=== PATIENT | female | born 1950 | race Caucasian/White ===

== ENCOUNTER 2024-12-14 05:52 | Inpatient (IN) | payer MEDICARE, BC ==
[~2024-12-14] VITALS: Ht 165.1 cm; Wt 73.0 kg
[2024-12-14] MEDS ORDERED: OXYMETAZOLINE HCL NASAL SPRAY 30 ML BOTTLE NS ONE (06:50)
[2024-12-14] MEDS ORDERED: ANESTHESIA TRAY IN PYXIS 1 EA TRAY MC ONE (06:50)
[2024-12-14] MEDS ORDERED: LIDOCAINE 2%-EPI 1:100,000 30 ML VIAL ONE (06:50)
[2024-12-14] MEDS ORDERED: VANCOMYCIN 1 GM VIAL ONE (06:50)
[2024-12-14] MEDS ORDERED: dexaMETHasone SOD PHOSPHATE 2 ML ONE (06:50)
[2024-12-14] MEDS ORDERED: ROCURONIUM BROMIDE 50 MG/5 ML ONE (07:42)
[2024-12-14] MEDS ORDERED: FENTANYL PF 100MCG/2ML AMPUL ONE ×2 (07:50)
[2024-12-14] MEDS ORDERED: MIDAZOLAM HCL 2 MG/2ML VIAL ONE (07:50)
[2024-12-14 11:00] VITALS: BP 83/50; TEMP 97.9; O2SAT 98
[2024-12-14] MEDS ORDERED: MAGNESIUM HYDROXIDE 30 ML UDC PO PRN (13:00)
[2024-12-14] MEDS ORDERED: MAG HYDROX/AL HYDROX/SIMETH 30 ML UDC PO PRN (13:00)
[2024-12-14] MEDS ORDERED: ACETAMINOPHEN 325 MG TABLET PO PRN (13:00)
[2024-12-14] MEDS ORDERED: Z GUARD REMEDY 4 OZ OINT TP PRN (13:00)
[2024-12-14] MEDS ORDERED: OXYMETAZOLINE HCL NASAL SPRAY 30 ML BOTTLE NS PRN (13:00)
[2024-12-14] MEDS ORDERED: HYDROMORPHONE 1 MG/1 ML DISP.SYRIN IV PRN (13:00)
[2024-12-14] MEDS ORDERED: ONDANSETRON HCL/PF 4 MG/2 ML VIAL IVP PRN ×2 (13:00)
[2024-12-14] MEDS ORDERED: VENL37.591 PO (14:13)
[2024-12-14] MEDS: IV NS 0.9% 1,000 ML IV PRN (14:14)
[2024-12-14 16:00] VITALS: BP 92/58; TEMP 97.2; O2SAT 90
[2024-12-14] MEDS: VANCOMYCIN 1 GM in IV D5W 250ml IV SCH (18:05)
[2024-12-14 20:00] VITALS: BP 105/66; TEMP 97.9; O2SAT 94
[2024-12-15] MEDS: ACETAMINOPHEN 325 MG TABLET PO PRN (07:26)
[2024-12-15 08:00] VITALS: BP 94/68; TEMP 97.5; O2SAT 95
[2024-12-15 08:25] VITALS: TEMP 98
== END 2024-12-15 13:45 | disposition home or self-care (01) | DRG 142 ==
LOC: DS 05:52 → MED 10:58
PROVIDERS: ADMIT Internal Medicine; ATTEND Internal Medicine
PROC: 0NUR07Z Supplement Maxilla with Autologous Tissue Substitute, Open Approach (ICD-10-PCS; 2024-12-14)
PROC: 09UR07Z Supplement Left Maxillary Sinus with Autologous Tissue Substitute, Open Approach (ICD-10-PCS; 2024-12-14)
PROC: 09UQ07Z Supplement Right Maxillary Sinus with Autologous Tissue Substitute, Open Approach (ICD-10-PCS; 2024-12-14)
PROC: 0N5R0ZZ Destruction of Maxilla, Open Approach (ICD-10-PCS; 2024-12-14)
PROC: 0NSL0ZZ Reposition Left Palatine Bone, Open Approach (ICD-10-PCS; 2024-12-14)
PROC: 09BR0ZZ Excision of Left Maxillary Sinus, Open Approach (ICD-10-PCS; 2024-12-14)
PROC: 0NSR04Z Reposition Maxilla with Internal Fixation Device, Open Approach (ICD-10-PCS; principal; 2024-12-14 07:30)
DX: S02.40DA Maxillary fracture, left side, initial encounter for closed fracture (principal); M27.2 Inflammatory conditions of jaws; S02.40CA Maxillary fracture, right side, initial encounter for closed fracture; H26.9 Unspecified cataract; Z79.899 Other long term (current) drug therapy; F32.A Depression, unspecified; Z88.1 Allergy status to other antibiotic agents; E11.9 Type 2 diabetes mellitus without complications; D16.4 Benign neoplasm of bones of skull and face; X58.XXXA Exposure to other specified factors, initial encounter; Y92.9 Unspecified place or not applicable
CPT/HCPCS: 36415; 71046; 80053-TC; 82962-TC; 85025-TC; 85610-TC; A4223; A4338; C1713; G0378; J0330; J1100; J1885; J2250; J2405; J2704; J2765; J3010; J3370; J3490; J7030; J7060

== ENCOUNTER 2025-04-20 06:29 | Inpatient (IN) | payer MEDICARE, BC ==
[~2025-04-20] VITALS: Ht 165.1 cm; Wt 64.9 kg
[~2025-04-20 06:29] MED LIST: VENL37.591 PO
[2025-04-20] MEDS ORDERED: dexaMETHasone SOD PHOSPHATE 1 ML ONE (06:48)
[2025-04-20] MEDS ORDERED: LIDOCAINE 2%-EPI 1:100,000 30 ML VIAL ONE (06:48)
[2025-04-20] MEDS ORDERED: VANCOMYCIN 1 GM VIAL ONE (06:48)
[2025-04-20] MEDS ORDERED: ANESTHESIA TRAY IN PYXIS 1 EA TRAY MC ONE (06:48)
[2025-04-20] MEDS ORDERED: FENTANYL PF 100MCG/2ML AMPUL ONE (07:14)
[2025-04-20] MEDS ORDERED: SUGAMMADEX SODIUM 200 MG/2 ML VIAL IV ONE (07:14)
[2025-04-20] MEDS ORDERED: ROCURONIUM BROMIDE 50 MG/5 ML ONE (07:15)
[2025-04-20] MEDS ORDERED: OXYMETAZOLINE HCL NASAL SPRAY 30 ML BOTTLE NS ONE (07:20)
[2025-04-20] MEDS ORDERED: ACETAMINOPHEN 325 MG TABLET PO PRN (10:00)
[2025-04-20] MEDS ORDERED: HYDROMORPHONE 1 MG/1 ML DISP.SYRIN IV PRN (10:00)
[2025-04-20] MEDS ORDERED: ONDANSETRON HCL/PF 4 MG/2 ML VIAL IV PRN (10:00)
[2025-04-20 10:09] VITALS: BP 136/82; TEMP 98.3; O2SAT 98
[2025-04-20] MEDS: IV NS 0.9% 1,000 ML IV PRN (10:19)
[2025-04-20] MEDS ORDERED: ONDANSETRON HCL/PF 4 MG/2 ML VIAL IVP PRN (15:00)
[2025-04-20] MEDS: CEFAZOLIN IV SCH (15:34)
[2025-04-20] MEDS: DEXTROSE IV SCH (15:34)
[2025-04-20 16:00] VITALS: BP 106/63; TEMP 98.1; O2SAT 98
[2025-04-20 20:00] VITALS: BP 121/105; TEMP 98.1; O2SAT 94
[2025-04-21 06:35] LABS: PLATELET COUNT (AUTO) 251 K/uL (150-450); RED BLOOD CELL COUNT(AUTO) 3.65 MIL/uL (4.0-5.2); RED CELL DISTRIBUTION WIDTH 14.7 % (11.5-15.0); WHITE BLOOD COUNT (AUTO) 8.1 K/uL (4.3-11.0)
[2025-04-21 07:02] LABS: ASPARTATE AMINOTRANSFERASE 16.0 U/L (15-37); CALCIUM, SERUM 9.6 mg/dL (8.5-10.1); CREATININE 0.6 mg/dL (0.6-1.3); PHOSPHORUS 3.1 mg/dL (2.5-4.9); SODIUM SERUM 139.0 mmol/L (136-145); TOTAL PROTEIN, SERUM 6.7 g/dL (6.4-8.2); UREA NITROGEN, BLOOD 17.0 mg/dL (7-18)
[2025-04-21 08:00] VITALS: BP 107/60; TEMP 98.2; O2SAT 98
[2025-04-21] MEDS: VENLAFAXINE XR 75 MG CAP.SR.24H PO SCH (09:47)
== END 2025-04-21 11:40 | disposition home or self-care (01) | DRG 497 ==
LOC: DS 06:29 → MED 09:26
PROVIDERS: ADMIT Internal Medicine; ATTEND Internal Medicine
PROC: 0N5R0ZZ Destruction of Maxilla, Open Approach (ICD-10-PCS; 2025-04-20)
PROC: 0NPW04Z Removal of Internal Fixation Device from Facial Bone, Open Approach (ICD-10-PCS; principal; 2025-04-20 07:30)
DX: T84.69XA Infection and inflammatory reaction due to internal fixation device of other site, initial encounter (principal); Y83.8 Other surgical procedures as the cause of abnormal reaction of the patient, or of later complication, without mention of misadventure at the time of the procedure; F32.A Depression, unspecified; M27.2 Inflammatory conditions of jaws; D16.4 Benign neoplasm of bones of skull and face; R23.8 Other skin changes; M89.38 Hypertrophy of bone, other site; E11.9 Type 2 diabetes mellitus without complications; Y72.8 Miscellaneous otorhinolaryngological devices associated with adverse incidents, not elsewhere classified; Y92.009 Unspecified place in unspecified non-institutional (private) residence as the place of occurrence of the external cause
CPT/HCPCS: 36415; 80053-TC; 82962-TC; 83735-TC; 84100-TC; 85025-TC; 88300-TC; 88305-TC; 88311-TC; A4223; A4338; G0378; J0690; J1100; J2405; J2704; J3010; J3373; J3490; J7030; J7060